=== PATIENT | female | born 1990 | race Caucasian/White ===

== ENCOUNTER 2017-12-21 19:46 | Emergency (ER) | payer OTHER ==
[~2017-12-21] VITALS: Ht 167.6 cm; Wt 81.6 kg
[~2017-12-21 19:46] MED LIST: AMOXICILLIN500 MG PO; BACTROBAN OINT22 GM PO; BENADRYL50 MG PO; BIRTH CONTROL1 EAC1 PO; CLARITIN-D 10 M1 T21 PO; Flagyl500 MG PO; KEFLEX500 MG PO; LIDEX 0.05% GEL60 GM PO; MEDROL DOSEPAK4 MG PO; MOTRIN800 MG PO; NKHM; PENICILLIN VK500 MG PO; SEPTRA DS 800 M1 TAB PO; VICODIN 500 MG-1 TAB PO; ZITHROMAX Z-PA250 MG PO
== END 2017-12-21 21:10 | disposition home or self-care (01) ==
LOC: ED 19:46
DX: S01.532A Puncture wound without foreign body of oral cavity, initial encounter (principal); Z88.2 Allergy status to sulfonamides; Z79.2 Long term (current) use of antibiotics; X58.XXXA Exposure to other specified factors, initial encounter; Y93.89 Activity, other specified; Y92.89 Other specified places as the place of occurrence of the external cause; Y99.8 Other external cause status

== ENCOUNTER 2024-06-10 15:11 | Emergency (ER) | payer OTHER ==
[~2024-06-10] VITALS: Ht 162.5 cm; Wt 86.2 kg
[2024-06-10] MEDS ORDERED: LISSAMINE GREEN 1.5 MG STRIP OP ONE (16:15)
[2024-06-10] MEDS ORDERED: Tetracaine Hydrochloride 0.5% 4 ML BOT OPH ONE (16:15)
[2024-06-10] MEDS ORDERED: ERYTHROMYCIN OPH1 GM OPH (17:26)
== END 2024-06-10 17:43 | disposition home or self-care (01) ==
LOC: ED 15:11
DX: S16.1XXA Strain of muscle, fascia and tendon at neck level, initial encounter (principal); Z79.899 Other long term (current) drug therapy; Z88.2 Allergy status to sulfonamides; V78.1XXA Passenger on bus injured in noncollision transport accident in nontraffic accident, initial encounter; Y93.89 Activity, other specified; Y92.89 Other specified places as the place of occurrence of the external cause; Y99.8 Other external cause status